=== PATIENT | female | born 1980 | race African-American/Black ===

== ENCOUNTER 2018-04-18 18:00 | Emergency (ER) | payer MEDICAID ==
[~2018-04-18] VITALS: Ht 167.6 cm; Wt 77.1 kg
[~2018-04-18 18:00] MED LIST: ACET325T51 PO; LORA10CA7 PO; METO25TA62 PO; PREN-129 PO
[2018-04-18] MEDS ORDERED: IBUPROFEN 600 MG TAB PO ONE (18:30)
[2018-04-18] MEDS ORDERED: IPRATROPIUM BROM 0.5 MG/2.5ML INH SOL NEB ONE (23:30)
[2018-04-18] MEDS ORDERED: ALBUTEROL SULF 2.5 MG/0.5ML(0.5%) NEB SOLN NEB ONE (23:30)
[2018-04-19 00:10] VITALS: BP 129/84
== END 2018-04-19 00:25 | disposition home or self-care (01) ==
LOC: ER 18:00
DX: J06.9 Acute upper respiratory infection, unspecified (principal)
CPT/HCPCS: 71045; 94640; 99283; J7611; J7644

== ENCOUNTER 2019-05-22 23:15 | Emergency (ER) | payer MEDICAID ==
[~2019-05-22] VITALS: Ht 167.6 cm; Wt 81.6 kg
[~2019-05-22 23:15] MED LIST changes: -METO25TA62 PO; +METO25TA93 PO
[2019-05-23 00:43] LABS: Basophils # (auto) 0 uL; Basophils % (auto) 0.5 % (0.0-2.0); Eosinophils # (auto) 0.1 uL; Eosinophils % (auto) 1.3 % (0.0-7.0); Hematocrit 41.1 % (36.0-46.0); Lymphocytes # (auto) 2.2 uL; Lymphocytes % (auto) 25.5 % (10.0-50.0); Mean Corpuscular Hemoglobin 28.8 pg (28.0-32.0); Mean Corpuscular Hgb Conc. 34.1 g/dL (32.0-36.0); Mean Corpuscular Volume 84.6 fL (80.0-100.0); Monocytes # (auto) 0.4 uL; Monocytes % (auto) 4.5 % (0.0-12.0); Neutrophils # (auto) 5.9 uL; Neutrophils % (auto) 68.2 % (37.0-80.0); Nucleated Red Blood Cells % 0.1 %; Platelet Count (auto) 249 10^3/uL (140-450); Red Blood Cells 4.86 10^6/uL (4.0-5.20); Red Cell Distribution Width 14.3 % (11.8-14.3); White Blood Cell 8.6 10^3/uL (4.4-10.8)
[2019-05-23 00:52] LABS: Urine Bacteria FEW /hpf (None Seen); Urine Blood 3+ /uL (Negative); Urine Mucus FEW (None Seen); Urine Specific Gravity 1.014 (1.001-1.035); Urine WBC 88 /hpf (0 - 5)
[2019-05-23 01:05] LABS: Alanine Aminotransferase 41 U/L (13-56); Anion Gap 10 (5-15); Aspartate Aminotransferase 24 U/L (15-37); BUN/Creatinine Ratio 11.6; Blood Alcohol < 3.0 mg/dL (0-5); Blood Urea Nitrogen 10 mg/dL (7-18); Calcium 8.7 mg/dL (8.5-10.1); Carbon Dioxide 25 mmol/L (21-32); Chloride 105 mmol/L (98-107); GFR African American 94 mL/min; GFR Non-African American 78 mL/min; Glucose 91 mg/dL (74-106); Magnesium 2.1 mg/dL (1.6-2.6); Sodium 140 mmol/L (136-145)
[2019-05-23 01:07] LABS: Salicylate < 1.7 mg/dL (2.8-20.0)
[2019-05-23 01:08] LABS: Acetaminophen < 2.0 ug/mL (10-30); Alkaline Phosphatase 76 U/L (45-117); Bilirubin, Total 0.5 mg/dL (0.2-1.0); Total Protein 8.2 g/dL (6.4-8.2)
[2019-05-23 01:13] LABS: Alcohol, Urine < 3.0 mg/dL (0-5); Amphetamine Screen, Urine NEGATIVE (NEGATIVE); Barbiturate Scree,Urine NEGATIVE (NEGATIVE); Benzodiazephine Screen, Urine NEGATIVE (NEGATIVE); Cannabinoid Screen, Urine NEGATIVE (NEGATIVE); Cocaine Screen, Urine NEGATIVE (NEGATIVE); Opiate Scree,Urine NEGATIVE (NEGATIVE); Phencyclidine Screen, Urine NEGATIVE (NEGATIVE)
[2019-05-23 01:13] LABS: Potassium 2.9 mmol/L (3.5-5.1)
[2019-05-23] MEDS ORDERED: POTASSIUM EFFERVESENT TAB 25 MEQ PO ONE (01:45)
[2019-05-23] MEDS ORDERED: cloNIDine HCL 0.1 MG TAB PO ONE (06:30)
[2019-05-23] MEDS ORDERED: cefTRIAXone W LIDOCAINE 1 GM IM IM ONE (07:45)
[2019-05-23] MEDS ORDERED: cefTRIAXone SOD 1,000 MG VL IM ONE (08:15)
[2019-05-23 10:39] VITALS: BP 128/80
== END 2019-05-23 11:05 | disposition home or self-care (01) ==
LOC: ER 23:17
DX: F32.9 Major depressive disorder, single episode, unspecified (principal); F41.9 Anxiety disorder, unspecified; I10 Essential (primary) hypertension
CPT/HCPCS: 36415; 80053; 80307; 80320; 80329; 81001; 83735; 84443; 85025; 96372

== ENCOUNTER 2021-06-01 18:43 | Emergency (ER) | payer MEDICAID ==
[~2021-06-01] VITALS: Ht 167.6 cm; Wt 74.8 kg
[2021-06-01 19:02] VITALS: BP 185/108
[2021-06-01 20:39] LABS: Urine Bacteria NONE SEEN /hpf (None Seen); Urine Blood 3+ /uL (Negative); Urine Specific Gravity 1.013 (1.001-1.035); Urine WBC 170 /hpf (0 - 5)
== END 2021-06-01 23:01 | disposition left against medical advice (07) ==
LOC: ER 18:44
DX: R10.9 Unspecified abdominal pain (principal); R11.10 Vomiting, unspecified; Z53.21 Procedure and treatment not carried out due to patient leaving prior to being seen by health care provider
CPT/HCPCS: 81001

== ENCOUNTER 2023-11-29 03:40 | Inpatient (IN) | payer MEDICAID ==
[~2023-11-29] VITALS: Ht 167.6 cm; Wt 84.1 kg
[2023-11-29] VITALS (17 sets, daily range): BP systolic 98–142; BP diastolic 61–82; PULSE 58–85; RESP 13–20; TEMP 97.2–98.5; O2SAT 95–100
[~2023-11-29 03:40] MED LIST changes: +LORA10CA PO; -LORA10CA7 PO
[2023-11-29] MEDS ORDERED: MORPHINE SULFATE 4 MG/ML SYR/VIAL IV ONE (04:00)
[2023-11-29] MEDS: SODIUM CHLORIDE 0.9% 1,000 ML IV ONE (04:13)
[2023-11-29] MEDS: ONDANSETRON HCL 4 MG/2 ML VIAL IV ONE (04:13)
[2023-11-29] MEDS: MORPHINE SULFATE 4 MG/ML SYR/VIAL IV ONE ×2 (04:19→09:18)
[2023-11-29 04:47] LABS: Alanine Aminotransferase 19 U/L (7-40); Albumin 3.9 g/dL (3.2-4.8); Alkaline Phosphatase 75 U/L (46-116); Anion Gap 10 (5-15); Aspartate Aminotransferase 14 U/L (13-40); BUN/Creatinine Ratio 12.2 (10.0-20.0); Blood Urea Nitrogen 14 mg/dL (9-23); Calcium 8.7 mg/dL (8.7-10.4); Carbon Dioxide 21 mmol/L (20-30); Chloride 108 mmol/L (98-107); Glucose 168 mg/dL (74-106); Potassium 3.1 mmol/L (3.5-5.1); Sodium 139 mmol/L (136-145)
[2023-11-29 04:48] LABS: Bilirubin, Total 0.5 mg/dL (0.2-1.0); Total Protein 6.2 g/dL (5.7-8.2)
[2023-11-29 04:50] LABS: Basophils # (auto) 0.1 10 ^3/uL (0-0.2); Basophils % (auto) 0.6 % (0.0-2.0); Eosinophils # (auto) 0.2 10 ^3/uL (0-0.8); Eosinophils % (auto) 1.6 % (0.0-7.0); Hematocrit 34.4 % (36.0-46.0); Hemoglobin 11.3 g/dL (12.2-16.2); Lymphocytes % (auto) 34.4 % (10.0-50.0); Mean Corpuscular Hemoglobin 28.3 pg (28.0-32.0); Mean Corpuscular Volume 85.9 fL (80.0-100.0); Monocytes # (auto) 0.7 10 ^3/uL (0-1.3); Monocytes % (auto) 6.3 % (0.0-12.0); Neutrophils # (auto) 6.6 10 ^3/uL (1.6-8.6); Neutrophils % (auto) 57.1 % (37.0-80.0); Red Cell Distribution Width 15.3 % (11.8-14.3); White Blood Cell 11.6 10^3/uL (4.4-10.8)
[2023-11-29 05:14] LABS: INR 0.97 (0.9-1.15); Partial Thromboplastin Time 25.3 SEC (24.5-34.5); Prothrombin Time 10.3 sec (9.3-11.8)
[2023-11-29 05:34] LABS: Urine Bacteria FEW /hpf (None Seen); Urine Blood Negative /uL (Negative); Urine Clarity Clear (Clear); Urine Color Colorless (Yellow); Urine Protein, UAD Negative (Negative); Urine Specific Gravity 1.007 (1.001-1.035); Urine Urobilinogen Normal (Negative); Urine WBC 9 /hpf (0 - 5)
[2023-11-29] MEDS ORDERED: NITROGLYCERIN 0.4 MG SL TAB SL PRN (07:15)
[2023-11-29] MEDS ORDERED: MORPHINE SULFATE INJ 2 MG/ml SYRG IV PRN (07:15)
[2023-11-29] MEDS ORDERED: ONDANSETRON HCL 4 MG/2 ML VIAL IV PRN (07:15)
[2023-11-29] MEDS: ENOXAPARIN SOD 80 MG/0.8ML SYRINGE SC ONE (07:48)
[2023-11-29] MEDS: POTASSIUM CHL 20 Meq TABLET PO ONE (07:48)
[2023-11-29] MEDS: MORPHINE SULFATE INJ 2 MG/ml SYRG IV ONE (09:19)
[2023-11-29] MEDS: ANGIOMAX 250 MG VIAL IV ONE (09:47)
[2023-11-29] MEDS: fentaNYL CITRATE 100 MCG/2 ML VL ONE (09:47)
[2023-11-29] MEDS: VERAPAMIL 2.5MG/ML INJ 2ML VIAL IV ONE (09:47)
[2023-11-29] MEDS: HEPARIN SODIUM (PORCINE) 5000 UNITS/ML 1ML VIAL ONE (09:47)
[2023-11-29] MEDS: IODIXANOL 320MG/ML 100ML BTL IV ONE (09:48)
[2023-11-29] MEDS: SODIUM CHL 0.9% 50 ML ONE (09:48)
[2023-11-29] MEDS: MIDAZOLAM HCL 2MG/2ML 2ml VIAL (1mg/ml) ONE (09:48)
[2023-11-29] MEDS ORDERED: ASPirin 81 mg TAB PO SCH (10:00)
[2023-11-29] MEDS ORDERED: ASPirin 81 mg TAB PO ONE (10:00)
[2023-11-29] MEDS ORDERED: HEPARIN DRIP/D5W 100UNITS/ML 250 ML IV SCH (10:00)
[2023-11-29] MEDS ORDERED: HEPARIN SODIUM (PORCINE) 5000 UNITS/ML 1ML VIAL IV ONE (10:00)
[2023-11-29] MEDS ORDERED: CLOPIDOGREL BISULFATE 75 MG TAB PO ONE (10:00)
[2023-11-29 13:54] LABS: Triglycerides 110 mg/dL (< 150)
[2023-11-29 13:55] LABS: LDL Cholesterol 78 mg/dL (< 100)
[2023-11-29 13:56] LABS: Cholesterol 146 mg/dL (< 200); HDL Cholesterol 59 mg/dL (40-59)
[2023-11-29] MEDS: ATORVASTATIN 20 MG TAB PO SCH (21:06)
[2023-11-29] MEDS: HYDROcodone-ACET 5/325MG TAB PO PRN (21:45)
[2023-11-29] MEDS ORDERED: ATORVASTATIN 20 MG TAB PO SCH (22:00)
[2023-11-30] VITALS (12 sets, daily range): BP systolic 133–180; BP diastolic 74–110; PULSE 63–96; RESP 18–20; TEMP 97.2–98.6; O2SAT 97–100
[2023-11-30 06:21] LABS: Basophils # (auto) 0 10 ^3/uL (0-0.2); Basophils % (auto) 0.5 % (0.0-2.0); Eosinophils # (auto) 0.1 10 ^3/uL (0-0.8); Eosinophils % (auto) 1.4 % (0.0-7.0); Hematocrit 31.2 % (36.0-46.0); Hemoglobin 10.6 g/dL (12.2-16.2); Lymphocytes # (auto) 1.8 10 ^3/uL (0.4-5.4); Lymphocytes % (auto) 28.5 % (10.0-50.0); Mean Corpuscular Hemoglobin 28.6 pg (28.0-32.0); Mean Corpuscular Volume 84.3 fL (80.0-100.0); Monocytes # (auto) 0.5 10 ^3/uL (0-1.3); Neutrophils % (auto) 62.6 % (37.0-80.0); Red Cell Distribution Width 14.8 % (11.8-14.3); White Blood Cell 6.4 10^3/uL (4.4-10.8)
[2023-11-30 06:30] LABS: Alanine Aminotransferase 14 U/L (7-40); Albumin 3.4 g/dL (3.2-4.8); Alkaline Phosphatase 44 U/L (46-116); Anion Gap 6 (5-15); Aspartate Aminotransferase 20 U/L (13-40); BUN/Creatinine Ratio 14.1 (10.0-20.0); Blood Urea Nitrogen 12 mg/dL (9-23); Calcium 8.4 mg/dL (8.7-10.4); Carbon Dioxide 23 mmol/L (20-30); Chloride 111 mmol/L (98-107); Glucose 93 mg/dL (74-106); Potassium 3.4 mmol/L (3.5-5.1); Sodium 140 mmol/L (136-145)
[2023-11-30 06:31] LABS: Bilirubin, Total 0.7 mg/dL (0.2-1.0); Total Protein 5.6 g/dL (5.7-8.2)
[2023-11-30] MEDS: ASPirin 81 mg TAB PO SCH (08:13)
[2023-11-30 09:42] LABS: Hepatitis B Surface Antigen Negative (Negative)
[2023-11-30] MEDS: hydrALAZINE HCL 20 MG/ML VL IV PRN (09:53)
[2023-11-30 10:04] LABS: Hepatitis C Antibody Negative (Negative)
[2023-11-30] MEDS ORDERED: ATOR-507 PO (11:42)
[2023-11-30] MEDS ORDERED: METO-158 PO (11:42)
[2023-11-30] MEDS ORDERED: ASPI-628 PO (11:42)
[2023-11-30] MEDS ORDERED: IBU600T PO (11:42)
[2023-11-30] MEDS: LABETALOL HCL 20 MG/4 ML VL IV ONE (21:15)
[2023-11-30] MEDS: METOPROLOL TARTRATE 50 MG TAB PO SCH (21:15)
[2023-11-30] MEDS ORDERED: cloNIDine HCL 0.1 MG TAB PO PRN (22:45)
[2023-11-30] MEDS: cloNIDine HCL 0.1 MG TAB PO ONE (23:27)
[2023-12-01 05:00] VITALS: BP 129/82; PULSE 55; RESP 17; TEMP 98.3; O2SAT 99
[2023-12-01 05:15] LABS: Alanine Aminotransferase 13 U/L (7-40); Albumin 3.8 g/dL (3.2-4.8); Alkaline Phosphatase 56 U/L (46-116); Anion Gap 8 (5-15); Aspartate Aminotransferase 18 U/L (13-40); BUN/Creatinine Ratio 14.7 (10.0-20.0); Bilirubin, Total 0.4 mg/dL (0.2-1.0); Blood Urea Nitrogen 14 mg/dL (9-23); Calcium 9.2 mg/dL (8.7-10.4); Carbon Dioxide 22 mmol/L (20-30); Chloride 110 mmol/L (98-107); Glucose 105 mg/dL (74-106); Potassium 3.3 mmol/L (3.5-5.1); Sodium 140 mmol/L (136-145)
[2023-12-01 07:30] VITALS: PULSE 67
[2023-12-01 09:00] VITALS: BP 139/94; PULSE 65; RESP 19; TEMP 98; O2SAT 99
== END 2023-12-01 14:30 | disposition home or self-care (01) | DRG 190 ==
LOC: EDBD 03:40 → ER 03:40 → TELE 07:15 → TELE-WESTW 17:14
PROVIDERS: ADMIT Nurse Practitioner; ATTEND Family Medicine
PROC: 4A023N7 Measurement of Cardiac Sampling and Pressure, Left Heart, Percutaneous Approach (ICD-10-PCS; principal; 2023-11-29)
PROC: B211YZZ Fluoroscopy of Multiple Coronary Arteries using Other Contrast (ICD-10-PCS; 2023-11-29)
DX: I21.29 ST elevation (STEMI) myocardial infarction involving other sites (principal); N17.0 Acute kidney failure with tubular necrosis; I51.4 Myocarditis, unspecified; I47.10 Supraventricular tachycardia, unspecified; E87.6 Hypokalemia; F32.A Depression, unspecified; I10 Essential (primary) hypertension; E78.5 Hyperlipidemia, unspecified; Z79.82 Long term (current) use of aspirin; Z88.8 Allergy status to other drugs, medicaments and biological substances
CPT/HCPCS: 36415; 71045; 80053; 80061; 81001; 81025; 83735; 83880; 84484; 84702; 85025; 85610; 85730; 86803; 87340; 93005; 93306; 93458; 99152; 99291; G0378; J2250; J2405; Q9967

== ENCOUNTER 2023-12-05 17:42 | Inpatient (IN) | payer MEDICAID ==
[~2023-12-05] VITALS: Ht 167.6 cm; Wt 83.8 kg
[~2023-12-05 17:42] MED LIST changes: +ASPI-628 PO; +ATOR-507 PO; +IBU600T PO; +METO-158 PO; -METO25TA93 PO
[2023-12-05 19:08] VITALS: PULSE 102; RESP 16; O2SAT 98
[2023-12-05] MEDS: methylPREDNISolone SOD SUCC 125 MG/2 ML VL IV ONE (19:27)
[2023-12-05] MEDS: diphenhdrAMINE HCL 50 MG/1 ML VL IM ONE (19:28)
[2023-12-05] MEDS: MORPHINE SULFATE 4 MG/ML SYR/VIAL IV ONE (20:59)
[2023-12-05] MEDS: ASPirin 81 mg TAB PO ONE (20:59)
[2023-12-05 21:13] LABS: Basophils # (auto) 0 10 ^3/uL (0-0.2); Basophils % (auto) 0.1 % (0.0-2.0); Eosinophils # (auto) 0 10 ^3/uL (0-0.8); Eosinophils % (auto) 0.1 % (0.0-7.0); Hematocrit 40.9 % (36.0-46.0); Hemoglobin 13.7 g/dL (12.2-16.2); Lymphocytes # (auto) 0.4 10 ^3/uL (0.4-5.4); Mean Corpuscular Hemoglobin 28.2 pg (28.0-32.0); Mean Corpuscular Hgb Conc. 33.5 g/dL (32.0-36.0); Mean Corpuscular Volume 84.1 fL (80.0-100.0); Monocytes # (auto) 0.1 10 ^3/uL (0-1.3); Monocytes % (auto) 0.5 % (0.0-12.0); Neutrophils # (auto) 14.5 10 ^3/uL (1.6-8.6); Neutrophils % (auto) 96.3 % (37.0-80.0); Red Blood Cells 4.86 10^6/uL (4.0-5.20); Red Cell Distribution Width 15.2 % (11.8-14.3)
[2023-12-05 21:30] LABS: INR 0.99 (0.9-1.15); Partial Thromboplastin Time 25.1 SEC (24.5-34.5); Prothrombin Time 10.5 sec (9.3-11.8)
[2023-12-05 21:32] LABS: Alanine Aminotransferase 23 U/L (7-40); Albumin 4.8 g/dL (3.2-4.8); Alkaline Phosphatase 75 U/L (46-116); Anion Gap 11 (5-15); Aspartate Aminotransferase 21 U/L (13-40); BUN/Creatinine Ratio 13.4 (10.0-20.0); Bilirubin, Total 0.8 mg/dL (0.2-1.0); Blood Urea Nitrogen 15 mg/dL (9-23); Calcium 9.8 mg/dL (8.7-10.4); Carbon Dioxide 21 mmol/L (20-30); Chloride 107 mmol/L (98-107); Glucose 172 mg/dL (74-106); Magnesium 1.9 mg/dL (1.6-2.6); Potassium 3.7 mmol/L (3.5-5.1); Sodium 139 mmol/L (136-145); Total Protein 7.7 g/dL (5.7-8.2)
[2023-12-05 21:33] LABS: Beta HCG, Quantitative 0.4 mIU/mL (1.5-4.2)
[2023-12-05 21:35] LABS: Thyroid Stimulating Hormone 0.73 uIU/mL (0.55-4.78)
[2023-12-05] MEDS ORDERED: ONDANSETRON HCL 4 MG/2 ML VIAL IV PRN (22:30)
[2023-12-05] MEDS: FAMOTIDINE (10MG/ML) 2ML VL IV ONE (22:30)
[2023-12-05] MEDS ORDERED: TEMAZEPAM 15 MG CAP PO PRN (22:30)
[2023-12-05 23:55] VITALS: PULSE 95; RESP 18; O2SAT 98
[2023-12-06] VITALS (7 sets, daily range): BP systolic 158–188; BP diastolic 92–117; PULSE 73–95; RESP 15–22; TEMP 98–98.6; O2SAT 95–100
[2023-12-06] MEDS: diphenhdrAMINE HCL 25 MG CAP PO PRN (04:35)
[2023-12-06] MEDS: cloNIDine HCL 0.1 MG TAB PO ONE (04:36)
[2023-12-06 07:27] LABS: Anion Gap 10 (5-15); Carbon Dioxide 20 mmol/L (20-30); Chloride 107 mmol/L (98-107); Potassium 3.9 mmol/L (3.5-5.1); Sodium 137 mmol/L (136-145)
[2023-12-06 07:28] LABS: Calcium 9.7 mg/dL (8.7-10.4)
[2023-12-06 07:33] LABS: BUN/Creatinine Ratio 16.7 (10.0-20.0); Blood Urea Nitrogen 18 mg/dL (9-23); Glucose 177 mg/dL (74-106)
[2023-12-06] MEDS: cloNIDine HCL 0.1 MG TAB PO PRN ×2 (08:35→12:54)
[2023-12-06] MEDS: ASPirin 81 mg TAB PO SCH (09:59)
[2023-12-06] MEDS: FAMOTIDINE (10MG/ML) 2ML VL IV SCH (12:42)
[2023-12-06] MEDS: LISINOPRIL 20 MG TAB PO SCH (12:42)
[2023-12-06] MEDS: hydroCHLOROthiazide 25 MG TAB PO ONE (15:08)
[2023-12-06 19:15] LABS: Urine Bacteria MANY /hpf (None Seen); Urine Blood Negative /uL (Negative); Urine Clarity Clear (Clear); Urine Color Colorless (Yellow); Urine Hyaline Cast FEW /lpf (0 - 2); Urine Protein, UAD Negative (Negative); Urine Specific Gravity 1.007 (1.001-1.035); Urine Urobilinogen Normal (Negative); Urine WBC 3 /hpf (0 - 5); Urine pH 5.5 (5.0-9.0)
[2023-12-06 19:22] LABS: Amphetamine Screen, Urine Neg (NEGATIVE); Benzodiazephine Screen, Urine Neg (NEGATIVE)
[2023-12-06 19:23] LABS: Barbiturate Scree,Urine Neg (NEGATIVE); Cannabinoid Screen, Urine Neg (NEGATIVE); Cocaine Screen, Urine Neg (NEGATIVE); Opiate Scree,Urine Neg (NEGATIVE); Phencyclidine Screen, Urine Neg (NEGATIVE)
[2023-12-07] VITALS (8 sets, daily range): BP systolic 148–173; BP diastolic 92–103; PULSE 59–69; RESP 17–62; TEMP 36.6; O2SAT 97–100
[2023-12-07 07:09] LABS: Basophils # (auto) 0 10 ^3/uL (0-0.2); Basophils % (auto) 0.1 % (0.0-2.0); Eosinophils # (auto) 0.1 10 ^3/uL (0-0.8); Eosinophils % (auto) 0.9 % (0.0-7.0); Hematocrit 35.3 % (36.0-46.0); Lymphocytes # (auto) 1.7 10 ^3/uL (0.4-5.4); Lymphocytes % (auto) 13.9 % (10.0-50.0); Mean Corpuscular Hemoglobin 28.3 pg (28.0-32.0); Mean Corpuscular Volume 83.2 fL (80.0-100.0); Monocytes # (auto) 0.7 10 ^3/uL (0-1.3); Monocytes % (auto) 5.8 % (0.0-12.0); Neutrophils # (auto) 9.6 10 ^3/uL (1.6-8.6); Neutrophils % (auto) 79.3 % (37.0-80.0); Nucleated Red Blood Cells % 0.1 %; Red Blood Cells 4.25 10^6/uL (4.0-5.20); Red Cell Distribution Width 15.2 % (11.8-14.3); White Blood Cell 12.1 10^3/uL (4.4-10.8)
[2023-12-07 07:35] LABS: Alanine Aminotransferase 27 U/L (7-40); Albumin 3.9 g/dL (3.2-4.8); Alkaline Phosphatase 58 U/L (46-116); Anion Gap 7 (5-15); Aspartate Aminotransferase 21 U/L (13-40); BUN/Creatinine Ratio 14.4 (10.0-20.0); Blood Urea Nitrogen 15 mg/dL (9-23); Calcium 9.4 mg/dL (8.7-10.4); Carbon Dioxide 26 mmol/L (20-30); Chloride 105 mmol/L (98-107); Glucose 128 mg/dL (74-106); Potassium 3.2 mmol/L (3.5-5.1); Sodium 138 mmol/L (136-145)
[2023-12-07 07:36] LABS: Bilirubin, Total 0.6 mg/dL (0.2-1.0); Total Protein 6.3 g/dL (5.7-8.2)
[2023-12-07] MEDS: hydroCHLOROthiazide 25 MG TAB PO SCH (10:00)
[2023-12-07] MEDS: POTASSIUM EFFERVESENT TAB 25 MEQ PO ONE (10:46)
[2023-12-07] MEDS ORDERED: CLOP75TA28 PO (13:58)
[2023-12-07] MEDS ORDERED: LOSA-534 PO (13:58)
[2023-12-07] MEDS ORDERED: CLON0.1T PO ×2 (15:26→15:33)
[2023-12-07] MEDS: LOSARTAN POTASSIUM 50 MG TAB PO ONE (15:33)
[2023-12-07] MEDS ORDERED: CLOB0.055 TOP (15:36)
[2023-12-07] MEDS: ACETAMINOPHEN 325 MG TAB PO PRN (17:10)
== END 2023-12-07 17:45 | disposition home or self-care (01) | DRG 812 ==
LOC: EDBD 17:42 → ER 17:42 → OVERFLOW 22:31 → WEST WING 12-06 02:40
PROVIDERS: ADMIT Internal Medicine Pulmonary Disease; ATTEND Internal Medicine Pulmonary Disease
DX: T50.995A Adverse effect of other drugs, medicaments and biological substances, initial encounter (principal); I47.10 Supraventricular tachycardia, unspecified; I16.0 Hypertensive urgency; I10 Essential (primary) hypertension; I25.2 Old myocardial infarction; Z79.899 Other long term (current) drug therapy; Y92.89 Other specified places as the place of occurrence of the external cause; Z88.8 Allergy status to other drugs, medicaments and biological substances
CPT/HCPCS: 36415; 71045; 80048; 80053; 80307; 81001; 83735; 83880; 84443; 84484; 84702; 85025; 85610; 85730; 86141; 93005; 96372; 96374; 99291; G0378; J3490